=== PATIENT | male | born 1990 | race Two or more races ===

== ENCOUNTER 2023-07-21 15:03 | Emergency (ER) | payer MEDICAID, OTHER ==
[~2023-07-21] VITALS: Ht 172.7 cm; Wt 83.0 kg
[2023-07-21 20:05] VITALS: BP 140/82; TEMP 98.4; O2SAT 99
[2023-07-21 20:06] VITALS: PULSE 72; RESP 20
[2023-07-21] MEDS ORDERED: IBUP-1455 PO (20:22)
[2023-07-21] MEDS: KETOROLAC TROMETH 30 MG/ML 1ML VIAL IM ONE (20:23)
== END 2023-07-21 20:31 | disposition home or self-care (01) ==
LOC: ER 15:03
DX: M54.50 Low back pain, unspecified (principal); G89.29 Other chronic pain; M79.645 Pain in left finger(s); F17.210 Nicotine dependence, cigarettes, uncomplicated; F12.10 Cannabis abuse, uncomplicated; Z59.00 Homelessness unspecified; Z88.6 Allergy status to analgesic agent
CPT/HCPCS: 96372; 99283; J1885

== ENCOUNTER 2023-07-22 03:31 | Emergency (ER) | payer MEDICAID ==
[~2023-07-22] VITALS: Ht 172.7 cm; Wt 80.6 kg
[~2023-07-22 03:31] MED LIST: IBUP-1455 PO
[2023-07-22 03:48] VITALS: BP 142/86; PULSE 77; RESP 16; O2SAT 98
[2023-07-22] MEDS ORDERED: KETOROLAC TROMETH 30 MG/ML 1ML VIAL IM ONE (04:30)
== END 2023-07-22 04:35 | disposition left against medical advice (07) ==
LOC: ER 03:31
DX: M79.18 Myalgia, other site (principal); F17.210 Nicotine dependence, cigarettes, uncomplicated; F12.10 Cannabis abuse, uncomplicated; Z88.1 Allergy status to other antibiotic agents; Z59.00 Homelessness unspecified